=== PATIENT | female | born 1980 | race Caucasian/White ===

== ENCOUNTER 2016-09-12 18:23 | Emergency (ER) | payer SELFPAY ==
[2016-09-12 18:30] VITALS: BP 141/90
[2016-09-12] MEDS ORDERED: KETOROLAC TROMETHAMINE 60 MG/2 ML VIAL IM ONE (18:30)
[2016-09-12] MEDS ORDERED: NALBUPHINE HCL 10 MG/1 ML IM ONE (18:31)
[2016-09-12] MEDS ORDERED: KETOROLAC TROMETHAMINE 60 MG/2 ML VIAL ONE (18:31)
--- NOTE | 2016-09-12 18:45 | ED Physician Documentation ---
Ear Complaints - HISTORIAN Historian: patient - HPI Stated Complaint: Right Ear Pain Chief Complaint: Ear Complaints Timing: worse Location of Pain: R ear Severity: severe Associated Symptoms: sharp pain Further Comments: yes (36 year old female patient presents with right ear pain which started yesterday and has become progressively worse, took ibuprofen at 1200 today.) - ROS CONST: no problems CVS/RESP: none GI/: denies: nausea, vomiting MS/SKIN/LYMPH: none NEURO/PSYCH: denies: weakness All Systems -: Yes - PAST HX Past History: none Allergies/Adverse Reactions: Allergies Allergy/AdvReac Type Severity Reaction Status Date / Time No Known Allergies Allergy Verified 08/12/12 10:58 Home Medications: Ambulatory Orders Medication Instructions Recorded Amoxicillin [Trimox] 500 mg PO TID #30 capsule 09/12/16 - SOCIAL HX Smoking History: non-smoker - FAMILY HX Family History: No - VITAL SIGNS Vital Signs: Vital Signs Temp Pulse Resp BP Pulse Ox 98.6 F 73 18 141/90 99 09/12/16 18:25 09/12/16 18:25 09/12/16 18:25 09/12/16 18:25 09/12/16 18:25 - REVIEWED ASSESSMENTS Nursing Assessment Reviewed: Yes Vitals Reviewed: Yes Progress - Progress Progress: Irrigated cerumen impaction out Right TM with bulging and erythema Will give IM rocephin in ER and send amoxil to pharmacy. Patient request $4 medication, does not have prescription insurance. ED Results Lab/Radiology - Orders Orders: ED Orders Category Date Time Status Irrigate Ear 1T Care 09/12/16 18:31 Active Ketorolac Tromethamine [Toradol] Med 09/12/16 18:31 Discontinued 60 mg .ROUTE .STK-MED ONE Ketorolac Tromethamine [Toradol] Med 09/12/16 18:30 Discontinued 60 mg IM NOW ONE Nalbuphine HCl [Nubain] Med 09/12/16 18:31 Discontinued 10 mg IM NOW ONE Ear Complaint Physical Exam - EXAM General Appearance: moderate distress Ear: auricle nml, premises technician.canal nml, pain w movement of auricl, right, swelling of canal (right), total cerumen impaction (right) Mouth/Throat: lips nml, gums nml, pharynx nml Nose: nml inspection Head/Neck: atraumatic, neck nml inspection Eye: eyes nml inspection, PERRL Resp/CVS: chest non-tender, breath sounds nml, heart sounds nml Skin: nml color, no skin rash Neuro/Psych: oriented x3, mood/affect nml Discharge Clincal Impression: Otitis media Qualifiers: Otitis media type: suppurative Chronicity: acute Laterality: right Recurrence: not specified as recurrent Spontaneous tympanic membrane rupture: without spontaneous rupture Qualified Code(s): H66.001 - Acute suppurative otitis media without spontaneous rupture of ear drum, right ear Prescriptions: Amoxicillin [Trimox] 500 mg PO TID #30 capsule Referrals: Neelima Arnold MD [Primary Care Provider] - 2 Days Additional Instructions: ibuprofen 800mg (4 tabs) every 8 hours x 2 days, then as needed for pain may alternate with tylenol every 4 hours as needed for pain. Limit dose to 4G/ [address] a cotton ball in the ear canal while showering. Avoid swimming pool, ramos, lerner, hot tub until ear is healed. Follow up with primary care if your symptoms become worse. Home Medications: Ambulatory Orders Amoxicillin [Trimox] 500 mg PO TID #30 capsule 09/12/16 Condition: Stable Disposition: 01 HOME, SELF-CARE Decision to Admit: NO Decision Time: 18:49
[2016-09-12] MEDS ORDERED: cefTRIAXone SODIUM 1 GM VIAL IM ONE (18:47)
[2016-09-12] MEDS ORDERED: Lidocaine 1% 5ml(IM or SUTURE)(PAIN CLINIC) IJ ONE (18:47)
== END 2016-09-12 19:05 | disposition home or self-care (01) ==
LOC: ED 18:23
DX: H66.001 Acute suppurative otitis media without spontaneous rupture of ear drum, right ear (principal)
CPT/HCPCS: J0696; J1885; J2300; 96372; 99283

== ENCOUNTER 2017-03-01 20:24 | Emergency (ER) | payer SELFPAY ==
--- NOTE | 2017-03-01 20:42 | ED Physician Documentation ---
Lower Extremity Injury - HISTORIAN Historian: patient - HPI Chief Complaint: Lower Extremity Injury (right foot pain) Additional Information: 36yo white female who slipped on some ice and fell down 8 stairs. Patient had her right lower legs caught underneath her and behind her and sustained injury to the dorsum of her foot. Patient denies any other injury. No head injury or LOC noted. No ankle, knee, hip or back injury. Onset: minutes (20 [employer]) Where: home Severity: moderate Context: fall Associated Symptoms:: denies: tingling, numbness distally, swelling, snapping sensation, unable to bear weight (was uble to bear weight with pain) Modifying Factors:: pain on movement - ROS CONST: no problems. denies: fever, chills - PAST HX Past History: none Immunizations: UTD Allergies/Adverse Reactions: Allergies Allergy/AdvReac Type Severity Reaction Status Date / Time No Known Allergies Allergy Verified 03/01/17 20:36 Home Medications: Ambulatory Orders Medication Instructions Recorded Hydrochlorothiazide 25 mg PO D 03/01/17 [Hydrochlorothiazide] Ibuprofen [Advil] 400 - 800 mg PO Q8 PRN #30 tablet 03/01/17 - SOCIAL HX Smoking History: non-smoker, quit greater than 1 year Alcohol Use: none - FAMILY HX Family History: none - VITAL SIGNS Vital Signs: Vital Signs Temp Pulse Resp BP Pulse Ox 89 18 121/83 99 03/01/17 20:24 03/01/17 20:24 03/01/17 20:24 03/01/17 20:24 - REVIEWED ASSESSMENTS Nursing Assessment Reviewed: Yes Vitals Reviewed: Yes ED Results Lab/Radiology - Radiology Radiology Impressions: Right foot, 3 views History: Fall, injury Findings: No fracture, dislocation or abnormal bone destruction is identified. Plantar calcaneal and Achilles tendon spurs are present. Impression: No acute abnormality. - Orders Orders: ED Orders Category Date Time Status Post Op Shoe 1T Care 03/01/17 21:41 Active FOOT 3V OR MORE VIEWS [FOOT 3 VIEWS OR MORE] [RAD] Stat Exams 03/01/17 Taken Ibuprofen [Advil] Med 03/01/17 21:39 Discontinued 400 - 800 mg PO Q8 PRN Ibuprofen [Advil] Med 03/01/17 21:46 Ordered 400 - 800 mg PO Q8 PRN Ketorolac Tromethamine [Toradol] Med 03/01/17 20:44 Discontinued 60 mg IM NOW ONE Lower Extremities Injury Phy - Physical Exam General Appearance: no acute distress, alert Hips: bilateral hip: non-tender, normal inspection, normal range of motion, no evidence of injury Legs: bilateral: non-tender, normal inspection, normal range of motion, no evidence of injury Knees: bilateral: non-tender, normal inspection, normal range of motion, no evidence of injury Ankle: right: ecchymosis (mild redness noted up the pretibial area), pain (mild over the medial melleolus), left: non-tender, bilateral: normal inspection, normal range of motion, N/A: bone tenderness (none), joint effusion (none), limited range of motion (none), swelling (none) Foot: right foot: ecchymosis (dorsum of the foot over the carpal area), limited range of motion, pain (over the mid dorsal foot), left foot: non-tender, normal inspection, normal range of motion, no evidence of injury, N/A: bone tenderness (none), deformity (none), soft tissue tenderness (none), swelling (none) Gait: limited by pain Neuro/Vascular/Tendon: no vascular compromise, motor nml, sensation nml Neck/Back: nml inspection, non-tender Resp/CVS: chest non-tender, breath sounds nml, heart sounds nml, no resp. distress. No: wheezes, rales, rhonchi Discharge Clincal Impression: Contusion of right foot Qualifiers: Encounter type: initial encounter Qualified Code(s): S90.31XA - Contusion of right foot, initial encounter Prescriptions: Ibuprofen [Advil] 400 - 800 mg PO Q8 PRN #30 tablet PRN Reason: Pain Referrals: Neelima Arnold MD [Primary Care Provider] - 2 Days Additional Instructions: Use a cool compress to the foot area, keep it elevated. Take Ibuprofen 800mg up to 3 times daily as needed for pain. Take it with food. Wear post op orthopedic shoe as needed for comfort measures. If not improving in the next several days to follow-up with primary care provider. Condition: Stable Disposition: 01 HOME, SELF-CARE Decision to Admit: NO Date of Decison to Admit: 03/01/17 Decision Time: 21:33
[2017-03-01] MEDS ORDERED: KETOROLAC TROMETHAMINE 60 MG/2 ML VIAL IM ONE (20:44)
[2017-03-01] MEDS ORDERED: IBUPROFEN 400 MG TABLET PO PRN ×2 (21:39→21:46)
[2017-03-01] MEDS ORDERED: IBUPROFEN 400 MG TABLET PO ONE (21:47)
--- NOTE | 2017-03-01 21:52 | Diagnostic Imaging Report ---
[facility] [address] [facility].[address] [id number] Report Submission Date: Mar 01, 2017 9:24:03 PM [employer] Patient Study Name: GISELLE NAYLOR Date: Mar 01, 2017 9:11:40 PM [employer] Modality Type: CR Gender: F Description: LOWER EXTREMITY : 78 Institution: [facility] Physician: FINESSE BLEDSOE Right foot, 3 views History: Fall, injury Findings: No fracture, dislocation or abnormal bone destruction is identified. Plantar calcaneal and Achilles tendon spurs are present. Impression: No acute abnormality. Electronically signed on Mar 01, 2017 9:24:03 PM [employer] by: Bandar LONGO
[2017-03-01 22:07] VITALS: BP 131/81
== END 2017-03-01 21:59 | disposition home or self-care (01) ==
LOC: ED 20:24
DX: S90.31XA Contusion of right foot, initial encounter (principal); W19.XXXA Unspecified fall, initial encounter; Y93.9 Activity, unspecified; Y99.9 Unspecified external cause status
CPT/HCPCS: 73630; J1885; 96372; 99283

== ENCOUNTER 2017-07-26 14:07 | Emergency (ER) | payer SELFPAY ==
[2017-07-26] MEDS: methylPREDNISolone ACETATE 80 MG/ML VIAL IM STA (14:18)
[2017-07-26] MEDS: DEXAMETHASONE SOD PHOS 4 MG/ML VIAL IM ONE (14:18)
[2017-07-26] MEDS: DEXAMETHASONE SOD PHOS 4 MG/ML VIAL ONE (14:19)
[2017-07-26] MEDS: methylPREDNISolone ACETATE 80 MG/ML VIAL IM ONE (14:20)
--- NOTE | 2017-07-26 14:27 | ED Physician Documentation ---
Skin Rash - HISTORIAN Historian: patient - HPI Chief Complaint: Skin Rash Onset: days ago (1) Timing: worse Duration: worse Location: generalized Quality: itchy, painful, burning Identified Cause?: No Where: park Context: Other Exposure: poison tana, poison oak Further Comments: yes (several lprev similar one episode of resp distress rec epi) - ROS CONST: none CVS/RESP: none EYES/ENT: none GI/: none MS/SKIN/LYMPH: rash NEURO/PSYCH: none - PAST HX Past History: hypertension, other (several prev contact derm) Surgeries/Procedures: Yes (GB) Allergies/Adverse Reactions: Allergies Allergy/AdvReac Type Severity Reaction Status Date / Time No Known Allergies Allergy Verified 07/26/17 14:26 Home Medications: Ambulatory Orders Medication Instructions Recorded Hydrochlorothiazide 25 mg PO DAILY 07/26/17 [Hydrochlorothiazide] - SOCIAL HX Smoking History: non-smoker Alcohol Use: rarely Drug Use: none - FAMILY HX Family History: none - VITAL SIGNS Vital Signs: Vital Signs Temp Pulse Resp BP Pulse Ox 97.3 F L 84 18 150/88 96 07/26/17 14:10 07/26/17 14:10 07/26/17 14:10 07/26/17 14:10 07/26/17 14:10 - REVIEWED ASSESSMENTS Nursing Assessment Reviewed: Yes Vitals Reviewed: Yes ED Results Lab/Radiology - Orders Orders: ED Orders Category Date Time Status Dexamethasone Sod Phosphate [Decadron] Med 07/26/17 14:15 Discontinued 8 mg .ROUTE .STK-MED ONE Dexamethasone Sod Phosphate [Decadron] Med 07/26/17 14:18 Discontinued 8 mg IM NOW ONE EPINEPHrine/PF [Adrenalin 1:1000] Med 07/26/17 15:21 Discontinued 0.3 mg SUBCUT NOW ONE EPINEPHrine/PF [Adrenalin 1:1000] Med 07/26/17 15:22 Discontinued 1 mg .ROUTE .STK-MED ONE Levalbuterol HCl [Xopenex] Med 07/26/17 15:08 Discontinued 1.25 mg NEB NOW ONE Loratadine [Claritin] Med 07/26/17 14:47 Discontinued 10 mg PO .STK-MED ONE Loratadine [Claritin] Med 07/26/17 14:50 Discontinued 10 mg PO NOW ONE diphenhydrAMINE HCL [Benadryl] Med 07/26/17 15:21 Discontinued 50 mg .ROUTE .STK-MED ONE diphenhydrAMINE HCL [Benadryl] Med 07/26/17 15:21 Discontinued 50 mg IM NOW ONE hydrOXYzine HCL [Vistaril] Med 07/26/17 14:47 Discontinued 50 mg IM .STK-MED ONE hydrOXYzine HCL [Vistaril] Med 07/26/17 14:54 Discontinued 50 mg IM NOW STA methylPREDNISolone ACETATE [Depo-Medrol] Med 07/26/17 14:15 Discontinued 80 mg IM .STK-MED ONE methylPREDNISolone ACETATE [Depo-Medrol] Med 07/26/17 14:18 Discontinued 80 mg IM NOW STA Skin Rash Physical Exam - EXAM General Appearance: moderate distress Skin: warm,dry, diaphoretic, skin rash, erythema. No: cyanotic, pallid, jaundiced, abscess, tender indurated area, pointing fluctuant with erythema Location: generalized Character: asymmetric Symptoms: well defined border, inflammation, rough texture. No: weeping Extremities: non-tender, nml ROM EENT: eyes nml inspection. No: injected conjunctivae, pharyngeal swelling Neck: trachea midline, no swelling Respiratory: no resp distress, chest non-tender, breath sounds normal. No: wheezes, rales CVS: reg. rate & rhythm, heart sounds nml Abdomen: non-tender, no distention Neuro/Psych: oriented x3, motor nml, sensation nml, mood/affect nml Discharge Clincal Impression: contact dermatitis Referrals: Neelima Arnold MD [Primary Care Provider] - 2 Days Comments: home cont claritin and benadryl prn and get pred if needed-ret ed prn Condition: Good Disposition: 01 HOME, SELF-CARE Decision to Admit: NO Decision Time: 16:20
[2017-07-26] MEDS: LORATADINE 10 MG TABLET PO ONE ×2 (14:50→14:52)
[2017-07-26] MEDS: hydrOXYzine HCL 50 MG/ML VIAL IM ONE (14:51)
[2017-07-26] MEDS: hydrOXYzine HCL 50 MG/ML VIAL IM STA (14:55)
[2017-07-26] MEDS ORDERED: LEVALBUTEROL HCL 1.25 MG/3 ML AMPUL.NEB NEB ONE (15:08)
[2017-07-26] MEDS: EPINEPHrine/PF 1 MG/1 ML 1:1000 SUBCUT ONE (15:22)
[2017-07-26] MEDS: diphenhydrAMINE HCL 50 MG/ML VIAL IM ONE (15:22)
[2017-07-26] MEDS: EPINEPHrine/PF 1 MG/1 ML 1:1000 ONE (15:27)
[2017-07-26] MEDS: diphenhydrAMINE HCL 50 MG/ML VIAL ONE (15:27)
[2017-07-26 16:26] VITALS: BP 132/78
== END 2017-07-26 16:25 | disposition home or self-care (01) ==
LOC: ED 14:07
DX: L23.9 Allergic contact dermatitis, unspecified cause (principal)
CPT/HCPCS: J0171; J1040; J1100; J1200; J3410; 94640; 96372; 99284

== ENCOUNTER 2019-03-14 14:11 | Outpatient (CLI) | payer OTHER ==
[2019-03-14 14:28] LABS: BASOPHILS % 0.5 % (0.0-1.5); NEUTROPHILS # 4.4 # k/uL (1.4-7.7)
[2019-03-14 15:15] LABS: HDL 50 mg/dL (>40); eGFR (Non-African) > 60
== END 2019-03-14 14:16 ==
LOC: LAB 14:11
PROVIDERS: ATTEND Family Medicine
DX: Z13.220 Encounter for screening for lipoid disorders (principal); Z13.0 Encounter for screening for diseases of the blood and blood-forming organs and certain disorders involving the immune mechanism; Z13.29 Encounter for screening for other suspected endocrine disorder
CPT/HCPCS: 36415; 80053; 80061; 84443; 85025